=== PATIENT | male | born 1950 | race African-American/Black ===

== ENCOUNTER 2016-12-04 18:20 | Inpatient (IN) | payer OTHER, MEDICARE ==
[~2016-12-04] VITALS: Ht 170.2 cm; Wt 85.2 kg
[2016-12-04 18:22] VITALS: BP 153/97; PULSE 87; RESP 12; TEMP 97.4; O2SAT 94
[2016-12-04 22:43] VITALS: BP 156/96; PULSE 87; RESP 16; O2SAT 95
--- NOTE | 2016-12-04 23:39 | PD ---
HPI Chief Complaint: Pain: Acute or Chronic Time Seen by Provider: 23:31 Travel History International Travel<30 days: No Contact w/Intl Traveler<30days: No Traveled to known affect area: No History of Present Illness HPI 66-year-old male with history of hypertension, here for evaluation of left lower extremity pain. The patient reports having pain behind his left knee is posterior/lateral left thigh, and in his groin on the left side. Pain is been going on for last 2 days, worse with movement and palpation, constant, moderate. No fevers. No trauma. No history of DVT or PE. No recent travel or immobilization. [facility] Social History Alcohol Use: No Tobacco Use: No (Former smoker) Allergies-Medications (Allergen,Severity, Reaction): Coded Allergies: No Known Allergies (Unverified , 12/04/16) Reported Meds & Prescriptions Reported Meds & Active Scripts Active Reported Atorvastatin (Atorvastatin Calcium) 10 Mg Tab 10 Mg PO DAILY Amlodipine (Amlodipine Besylate) 10 Mg Tab 10 Mg PO DAILY Metoprolol Tartrate 50 Mg Tab 75 Mg PO BID Aspirin EC (Aspirin) 81 Mg Tabdr 81 Mg PO DAILY Review of Systems Except as stated in HPI: all other systems reviewed are Neg Physical Exam Narrative GENERAL: Well-developed, well-nourished, comfortable, no acute distress. SKIN: Warm and dry. On right mid/anterior thigh there is a horizontal wavy line of erythema, no warmth, no red streaks, no induration. Over the posterior/ medial left knee there is an area of ecchymosis with a palpable cord. CARDIOVASCULAR: Regular rate and rhythm. Bilateral dorsalis pedis pulses are brisk and equal. RESPIRATORY: No accessory muscle use. Clear to auscultation. Breath sounds equal bilaterally. MUSCULOSKELETAL: There is moderate tenderness to the posterior/medial left knee , medial left thigh, and left groin. No induration. All compartments are supple. Normal range of motion in left knee and hip. The rest of his joints and extremities are without deformity, without tenderness, with normal range of motion. No obvious deformities. No clubbing. No cyanosis. No edema. NEUROLOGICAL: Awake and alert. No obvious cranial nerve deficits. Motor grossly within normal limits. Normal speech. PSYCHIATRIC: Appropriate mood and affect; insight and judgment normal. Data Data Last Documented VS Vital Signs Date Time Temp Pulse Resp B/P Pulse Ox O2 Delivery O2 Flow Rate FiO2 12/04/16 22:43 87 16 156/96 95 Room Air 12/04/16 18:22 97.4 Orders Basic Metabolic Panel (Bmp) (12/04/16 23:34) Complete Blood Count With Diff (12/04/16 23:34) Iv Access Insert/Monitor (12/04/16 23:34) Ecg Monitoring (12/04/16 23:34) Oximetry (12/04/16 23:34) Tramadol (Ultram) (12/04/16 23:45) Us Leg Venous Doppler (12/05/16 ) Heparin Infusion MARCE.Q1H (12/05/16 01:18) Heparin Inj (Heparin Inj) (12/05/16 01:30) Heparin Inj (Heparin Inj) (12/05/16 07:30) Heparin Inj (Heparin Inj) (12/05/16 07:30) Heparin-D5w Inj (Heparin-D5w Inj) (12/05/16 01:30) Act Partial Throm Time (Ptt) (12/05/16 01:18) Prothrombin Time / Inr (Pt) (12/05/16 01:18) Cbc No Diff, Includes Plts (12/08/16 06:00) Act Partial Throm Time (Ptt) (12/05/16 08:18) Occult Blood (Hemoccult) Stool (12/05/16 01:18) Invasive Rad Dept Consult (12/05/16 ) Admit Order (Ed Use Only) (12/05/16 03:12) Labs Laboratory Tests Test 12/05/16 12/05/16 00:50 01:30 Sodium Level 139 MEQ/L Potassium Level 4.7 MEQ/L Chloride Level 108 MEQ/L Carbon Dioxide Level 24.6 MEQ/L Anion Gap 6 MEQ/L Blood Urea Nitrogen 29 MG/DL Creatinine 2.40 MG/DL Estimat Glomerular Filtration 27 ML/MIN Rate Random Glucose 105 MG/DL Calcium Level 9.3 MG/DL White Blood Count 8.2 TH/MM3 Red Blood Count 5.20 MIL/MM3 Hemoglobin 15.6 GM/DL Hematocrit 45.9 % Mean Corpuscular Volume 88.2 FL Mean Corpuscular Hemoglobin 30.1 PG Mean Corpuscular Hemoglobin 34.1 % Concent Red Cell Distribution Width 13.3 % Platelet Count 116 TH/MM3 Mean Platelet Volume 8.4 FL Neutrophils (%) (Auto) 62.0 % Lymphocytes (%) (Auto) 24.9 % Monocytes (%) (Auto) 10.3 % Eosinophils (%) (Auto) 2.2 % Basophils (%) (Auto) 0.6 % Neutrophils # (Auto) 5.1 TH/MM3 Lymphocytes # (Auto) 2.0 TH/MM3 Monocytes # (Auto) 0.8 TH/MM3 Eosinophils # (Auto) 0.2 TH/MM3 Basophils # (Auto) 0.0 TH/MM3 CBC Comment DIFF FINAL Differential Comment Prothrombin Time 11.7 SEC Prothromb Time International 1.1 RATIO Ratio Activated Partial 21.8 SEC Thromboplast Time MDM Medical Decision Making Medical Screen Exam Complete: Yes Emergency Medical Condition: Yes Differential Diagnosis DVT, Gutierrez cyst, musculoskeletal strain, cellulitis/infectious process not likely Narrative Course Vital signs reviewed. Wet read from quality assurance technician shows in occlusive thrombus in the left lower extremity. There are no signs of phlegmasia cerulea dolens and supervisor sewer maintenance phlegmasia alba. He has brisk dorsalis pedis pulses bilaterally. There is an erythematous line across his mid anterior thigh that is squiggly and horizontal, no warmth. It does not appear to be an infection. Seems more like a contact dermatitis. Pt denies chest pain or dyspnea. Left lower extremity duplex: CONCLUSION: 1. Extensive deep venous thrombosis left lower extremity. 2. Thrombolysis could be considered if clinically indicated Case discussed with reading radiologist Dr. Springer. I believe the patient is a good candidate for thrombolysis given that signs and symptoms started 2 days ago and there seems to be a significant clot burden. Patient be admitted to the medical service with consult placed in interventional radiology. The patient was made aware of all findings and plan for admission. He will be started on heparin. At approximately 1:00 AM at the end of my shift the patient was signed out to my nurse practitioner who follow-up with lab results and will admit the patient out of service. Diagnosis Primary Impression: Deep vein thrombosis (DVT) of left lower extremity Qualified Code: I82.492 - Acute deep vein thrombosis (DVT) of other specified vein of left lower extremity Admitting Information Admitting Physician Requests: Observation Avtar Lopez MD Dec 04, 2016 23:39
[2016-12-04] MEDS ORDERED: traMADol HCL 50 MG TAB PO ONE (23:45)
[2016-12-05] MEDS ORDERED: PERC5TAB12 PO (00:54)
--- NOTE | 2016-12-05 01:02 | RADRPT ---
EXAM DATE/TIME: 12/05/2016 00:15 This report includes an Addendum and supersedes previous reports for this exam. [place] COMPARISON: No previous studies available for comparison. INDICATIONS : Left leg pain. MEDICAL HISTORY : Hypertension. Left leg pain. SURGICAL HISTORY : None. ENCOUNTER: Initial ACUITY: 3 days PAIN SCORE: 9/10 LOCATION: Left leg. TECHNIQUE: Venous ultrasound of the leg was performed from the inguinal ligament to the proximal calf. Real-mod[place] e, color Doppler and spectral tracing, compression and augmentation techniques were used. FINDINGS: There is extensive deep venous thrombosis of the entire left leg from the iliac vein through the popl iteal vein and into the calf veins. CONCLUSION: 1. Extensive deep venous thrombosis left lower extremity. 2. Thrombolysis could be considered if clinically indicated Abdirizak Springer MD on December 05, 2016 at 0:59 Board Certified Radiologist. This report was verified electronically. ADDENDUM: The findings section of the report has been corrected. Felipe Hardy MD on December 05, 2016 at 8:04 Board Certified Radiologist. This report was verified electronically.
[2016-12-05 01:24] LABS: BICARBONATE 24.6 MEQ/L (21.0-32.0); POTASSIUM 4.7 MEQ/L (3.5-5.1)
[2016-12-05] MEDS ORDERED: HEPARIN SODIUM - IV 10,000 UNITS/10 ML VIAL IV ONE (01:30)
[2016-12-05] MEDS: HEPARIN-D5W INJ 250 ML IV SCH ×2 (02:13→20:55)
[2016-12-05 02:18] LABS: AUTOMATED NEUTROPHIL # 5.1 TH/MM3 (1.8-7.7); BASOPHIL % 0.6 % (0.0-2.0); EOSINOPHIL # 0.2 TH/MM3 (0-0.4); EOSINOPHIL % 2.2 % (0.0-4.0); HEMATOCRIT 45.9 % (39.0-51.0); HEMO FLAGS DIFF FINAL; LYMPH % 24.9 % (9.0-44.0); MEAN CELL VOLUME 88.2 FL (80.0-100.0); MEAN CORPUSCULAR HEMOGLOBIN 30.1 PG (27.0-34.0); MEAN CORPUSCULAR HGB CONC 34.1 % (32.0-36.0); MONO % 10.3 % (0.0-8.0); PLATELET COUNT 116 TH/MM3 (150-450); RED CELL DISTRIBUTION WIDTH 13.3 % (11.6-17.2); WHITE BLOOD COUNT 8.2 TH/MM3 (4.0-11.0)
[2016-12-05 02:31] LABS: APTT (PATIENT) 21.8 SEC (24.3-30.1); INTERNATIONAL NORMALIZED RATIO 1.1 RATIO; PROTHROMBIN TIME - PATIENT 11.7 SEC (9.8-11.6)
[2016-12-05] MEDS ORDERED: MORPHINE SULFATE 4 MG/ML INJ IV PRN (03:45)
[2016-12-05] MEDS ORDERED: ACETAMINOPHEN 325 MG TAB PO PRN (03:45)
[2016-12-05] MEDS ORDERED: ONDANSETRON HCL 4 MG/2 ML VIAL IVP PRN (03:45)
[2016-12-05] MEDS ORDERED: BISACODYL 10 MG SUPP PR PRN (03:45)
[2016-12-05] MEDS ORDERED: SODIUM CHLORIDE 0.9% FLUSH 5 ML FLUSH FLUSH PRN (03:45)
[2016-12-05 04:00] VITALS: BP 135/98; RESP 16; TEMP 98.1; O2SAT 94
[2016-12-05] MEDS: SODIUM CHLOR 0.9% 1000 ML INJ 1,000 ML IV SCH ×3 (04:19→20:54)
--- NOTE | 2016-12-05 04:45 | PD ---
Physical Exam Time Seen by Provider: 01:00 Narrative Please refer to previous providers documentation for details running patient's current visit. Data Data Last Documented VS Vital Signs Date Time Temp Pulse Resp B/P Pulse Ox O2 Delivery O2 Flow Rate FiO2 12/04/16 22:43 87 16 156/96 95 Room Air 12/04/16 18:22 97.4 Orders Basic Metabolic Panel (Bmp) (12/04/16 23:34) Complete Blood Count With Diff (12/04/16 23:34) Iv Access Insert/Monitor (12/04/16 23:34) Ecg Monitoring (12/04/16 23:34) Oximetry (12/04/16 23:34) Tramadol (Ultram) (12/04/16 23:45) Us Leg Venous Doppler (12/05/16 ) Heparin Infusion MARCE.Q1H (12/05/16 01:18) Heparin Inj (Heparin Inj) (12/05/16 01:30) Heparin Inj (Heparin Inj) (12/05/16 07:30) Heparin Inj (Heparin Inj) (12/05/16 07:30) Heparin-D5w Inj (Heparin-D5w Inj) (12/05/16 01:30) Act Partial Throm Time (Ptt) (12/05/16 01:18) Prothrombin Time / Inr (Pt) (12/05/16 01:18) Cbc No Diff, Includes Plts (12/08/16 06:00) Act Partial Throm Time (Ptt) (12/05/16 08:18) Occult Blood (Hemoccult) Stool (12/05/16 01:18) Invasive Rad Dept Consult (12/05/16 ) Admit Order (Ed Use Only) (12/05/16 03:12) Labs Laboratory Tests Test 12/05/16 12/05/16 00:50 01:30 Sodium Level 139 MEQ/L Potassium Level 4.7 MEQ/L Chloride Level 108 MEQ/L Carbon Dioxide Level 24.6 MEQ/L Anion Gap 6 MEQ/L Blood Urea Nitrogen 29 MG/DL Creatinine 2.40 MG/DL Estimat Glomerular Filtration 27 ML/MIN Rate Random Glucose 105 MG/DL Calcium Level 9.3 MG/DL White Blood Count 8.2 TH/MM3 Red Blood Count 5.20 MIL/MM3 Hemoglobin 15.6 GM/DL Hematocrit 45.9 % Mean Corpuscular Volume 88.2 FL Mean Corpuscular Hemoglobin 30.1 PG Mean Corpuscular Hemoglobin 34.1 % Concent Red Cell Distribution Width 13.3 % Platelet Count 116 TH/MM3 Mean Platelet Volume 8.4 FL Neutrophils (%) (Auto) 62.0 % Lymphocytes (%) (Auto) 24.9 % Monocytes (%) (Auto) 10.3 % Eosinophils (%) (Auto) 2.2 % Basophils (%) (Auto) 0.6 % Neutrophils # (Auto) 5.1 TH/MM3 Lymphocytes # (Auto) 2.0 TH/MM3 Monocytes # (Auto) 0.8 TH/MM3 Eosinophils # (Auto) 0.2 TH/MM3 Basophils # (Auto) 0.0 TH/MM3 CBC Comment DIFF FINAL Differential Comment Prothrombin Time 11.7 SEC Prothromb Time International 1.1 RATIO Ratio Activated Partial 21.8 SEC Thromboplast Time MDM Medical Record Reviewed: Yes Supervised Visit with OLGA LIDIA: No Narrative Course Patient was seen and evaluated by Dr. Lopez, signed out to me with lab work pending. Laboratory Tests Test 12/05/16 12/05/16 00:50 01:30 Sodium Level 139 MEQ/L Potassium Level 4.7 MEQ/L Chloride Level 108 MEQ/L Carbon Dioxide Level 24.6 MEQ/L Anion Gap 6 MEQ/L Blood Urea Nitrogen 29 MG/DL Creatinine 2.40 MG/DL Estimat Glomerular Filtration 27 ML/MIN Rate Random Glucose 105 MG/DL Calcium Level 9.3 MG/DL White Blood Count 8.2 TH/MM3 Red Blood Count 5.20 MIL/MM3 Hemoglobin 15.6 GM/DL Hematocrit 45.9 % Mean Corpuscular Volume 88.2 FL Mean Corpuscular Hemoglobin 30.1 PG Mean Corpuscular Hemoglobin 34.1 % Concent Red Cell Distribution Width 13.3 % Platelet Count 116 TH/MM3 Mean Platelet Volume 8.4 FL Neutrophils (%) (Auto) 62.0 % Lymphocytes (%) (Auto) 24.9 % Monocytes (%) (Auto) 10.3 % Eosinophils (%) (Auto) 2.2 % Basophils (%) (Auto) 0.6 % Neutrophils # (Auto) 5.1 TH/MM3 Lymphocytes # (Auto) 2.0 TH/MM3 Monocytes # (Auto) 0.8 TH/MM3 Eosinophils # (Auto) 0.2 TH/MM3 Basophils # (Auto) 0.0 TH/MM3 CBC Comment DIFF FINAL Differential Comment Prothrombin Time 11.7 SEC Prothromb Time International 1.1 RATIO Ratio Activated Partial 21.8 SEC Thromboplast Time I discussed the patient with Dr. Randolph. Patient will be admitted to the [facility] service. Diagnosis Primary Impression: Deep vein thrombosis (DVT) of left lower extremity Qualified Code: I82.492 - Acute deep vein thrombosis (DVT) of other specified vein of left lower extremity Scripts Oxycodone-Acetaminophen (Percocet)5-325 mg Tab1 Tab PO Q6H PRN (PAIN) #15 TAB Ref 0 Prov:Avatr Lopez MD 12/05/16 Ellie Trevino Dec 05, 2016 04:45
--- NOTE | 2016-12-05 05:20 | HHI.HP ---
[facility]Staff Admission Diagnosis LLE DVT Diagnoses: (1) Deep vein thrombosis (DVT) of left lower extremity Diagnosis: Principal (2) Renal insufficiency Diagnosis: Principal (3) Thrombocytopenia Diagnosis: Principal (4) HTN (hypertension) Diagnosis: Principal Travel History International Travel<30 Days: No Contact w/Intl Traveler <30 Da: No Traveled to Known Affected Are: No History of Present Illness This is a 66-year-old male with a PMH of HTN who presented to the ER with complaints of left leg since Friday. States he had sudden onset of left leg cramping which he attributed to muscle pain from walking. States pain has progressed from calf up to left groin at which point he decided to come in. Denies SOB, chest pain or cough. On arrival, BP 153/97, HR 87, O2 sat 94% on RA , Afebrile. WBC normal. Hgb 15.6. Platelets 116, no previous labs for comparison. Creatinine 2.40, no previous labs for comparison. LLE Doppler with extensive DVT. ER physician spoke with Radiologist who recommends thrombolysis. Started on Heparin gtt in ER. Pt denies previous h/o DVT/PE, no travel, no recent surgical intervention, no tobacco abuse. Review of Systems Except as stated in HPI: all other systems reviewed are Neg ROS: 14 point review of systems otherwise negative. Past Family Social History Past Medical History PMH: HTN Past Surgical History PAST SURGICAL HISTORY: None Allergies: Coded Allergies: No Known Allergies (Unverified , 12/04/16) Family History PAST FAMILY HISTORY: Reviewed. No h/o DM or CAD Social History PAST SOCIAL HISTORY: Negative for alcohol, tobacco or drugs. Physical Exam Vital Signs Vital Signs Date Time Temp Pulse Resp B/P Pulse Ox O2 Delivery O2 Flow Rate FiO2 12/04/16 22:43 87 16 156/96 95 Room Air 12/04/16 18:22 97.4 87 12 153/97 94 Room Air Physical Exam PE: GENERAL: Pleasant middle-aged black male in no acute distress. HEENT: PERRLA, EOMI. No scleral icterus or conjunctival pallor. No lid lag or facial droop. CARDIOVASCULAR: Regular rate and rhythm. No obvious murmurs to auscultation. No chest tenderness to palpation. RESPIRATORY: No obvious rhonchi or wheezing. Clear to auscultation. Breath sounds equal bilaterally. GASTROINTESTINAL: Abdomen soft, non-tender, nondistended. BS normal. MUSCULOSKELETAL: Extremities without clubbing, cyanosis, or edema. No obvious deformities. Left leg/thigh tenderness to palpation. Pulses intact. NEUROLOGICAL: Awake, alert and oriented x4. No focal neurologic deficits. Moving both upper and lower extremities spontaneously. Laboratory Laboratory Tests Test 12/05/16 12/05/16 00:50 01:30 Sodium Level 139 Potassium Level 4.7 Chloride Level 108 Carbon Dioxide Level 24.6 Anion Gap 6 Blood Urea Nitrogen 29 Creatinine 2.40 Estimat Glomerular Filtration 27 Rate Random Glucose 105 Calcium Level 9.3 White Blood Count 8.2 Red Blood Count 5.20 Hemoglobin 15.6 Hematocrit 45.9 Mean Corpuscular Volume 88.2 Mean Corpuscular Hemoglobin 30.1 Mean Corpuscular Hemoglobin 34.1 Concent Red Cell Distribution Width 13.3 Platelet Count 116 Mean Platelet Volume 8.4 Neutrophils (%) (Auto) 62.0 Lymphocytes (%) (Auto) 24.9 Monocytes (%) (Auto) 10.3 Eosinophils (%) (Auto) 2.2 Basophils (%) (Auto) 0.6 Neutrophils # (Auto) 5.1 Lymphocytes # (Auto) 2.0 Monocytes # (Auto) 0.8 Eosinophils # (Auto) 0.2 Basophils # (Auto) 0.0 CBC Comment DIFF FINAL Differential Comment Prothrombin Time 11.7 Prothromb Time International 1.1 Ratio Activated Partial 21.8 Thromboplast Time Result Diagram: 12/05/16 0130 12/05/16 0050 Assessment and Plan Problem List: (1) Deep vein thrombosis (DVT) of left lower extremity ICD Code: I82.402 Status: Acute (2) Renal insufficiency ICD Code: N28.9 Status: Acute (3) Thrombocytopenia ICD Code: D69.6 Status: Acute (4) HTN (hypertension) ICD Code: I10 Status: Acute Assessment and Plan A/P: 1. LLE DVT: Acute. c/o cramping left leg pain since Friday. Doppler LLE w/ extensive DVT of LLE, amenable to thrombolysis. ER physician spoke w/ Radiologist to coordinate thrombolysis, scheduled for this am. Started on Heparin gtt in ER. No h/o DVT/PE, no risk factors, no tobacco abuse, no surgery , no prolonged immobilization. Work-up for age-appropriate malignancy. 2. Renal Insufficiency: Creatinine 2.40, reports h/o "kidney problems" however pt unable to specify further, no previous labs for comparison. Check U/ a, IVF, repeat labs in am. 3. Thrombocytopenia: Platelets 116, no previous labs for comparison. Caution w/ anticoagulation. Repeat labs in am. 4. HTN: BP 150's systolic. Start on Metoprolol 25mg bid. 5. DVT Prophylaxis: on Heparin gtt for acute DVT. 6. Social work for d/c planning as needed. 7. Case discussed w/ ER physician at length. Physician Certification 2 Midnight Certification Type: Admission for Inpatient Services Order for Inpatient Services The services are ordered in accordance with Medicare regulations or non- Medicare payer requirements, as applicable. In the case of services not specified as inpatient-only, they are appropriately provided as inpatient services in accordance with the 2-midnight benchmark. Estimated LOS (days): 2 days is the estimated time the patient will need to remain in the hospital, assuming treatment plan goals are met and no additional complications. Post-Hospital Plan: Not yet determined Problem Qualifiers (1) Deep vein thrombosis (DVT) of left lower extremity: Qualified Code: I82.492 - Acute deep vein thrombosis (DVT) of other specified vein of left lower extremity Anupama Randolph MD Dec 05, 2016 05:19
[2016-12-05] MEDS ORDERED: HEPARIN SODIUM - IV 10,000 UNITS/10 ML VIAL IV PRN ×2 (07:30)
[2016-12-05 08:06] LABS: BACTERIA, URINE OCC /hpf; BLOOD, URINE NEG (NEG); COMMENT (UR) CULTURE INDICATED; CULTURE IF INDICATED CULTURE INDICATED; GLUCOSE,URINE NEG (NEG); KETONE, URINE NEG (NEG); MUCUS URINE FEW /lpf (OCC); NITRITE,URINE NEG (NEG); PH, URINE 5.5 (5.0-8.5); URINE COLOR YELLOW (YELLW/STRAW)
--- NOTE | 2016-12-05 08:46 | PD.RAD ---
Radiology Note 66 Y/O with acute DVT left lower extremity and H/O chronic renal insufficiency with creatine of 2.4 Pt examined in the ED Left leg is moderately swollen but no threatened. The risk , benefits and complications of DVT thrombolysis were discussed. A/P: PT has chronic renal insufficiency. Leg is swollen but non threatened. Due to the risk of contrast induced nephropathy / worsened nephropathy from my myoglobinuria if mechanical thrombectomy is preformed, Conventional anticoagulation for treatment would be recommended at this time. If swelling worsens please reconsult IR dept. Felipe Hardy MD Dec 05, 2016 08:45
[2016-12-05] MEDS ORDERED: METOPROLOL TARTRATE 25 MG TAB PO SCH (09:00)
[2016-12-05 09:50] VITALS: BP 130/84; PULSE 93; RESP 18; O2SAT 91
[2016-12-05] MEDS: ACETAMINOPHEN/HYDROcodone 325 MG/5 MG TAB PO PRN ×3 (09:50→18:49)
[2016-12-05] MEDS: SODIUM CHLORIDE 0.9% FLUSH 5 ML FLUSH FLUSH SCH ×2 (09:56→20:55)
[2016-12-05 10:28] LABS: APTT (PATIENT) 80.2 SEC (24.3-30.1)
[2016-12-05] MEDS ORDERED: ASPI81TA11 PO (10:46)
[2016-12-05] MEDS ORDERED: ATOR10TA15 PO (10:54)
[2016-12-05] MEDS ORDERED: METO50TA PO (10:54)
[2016-12-05] MEDS ORDERED: AMLO10TA2 PO (10:54)
--- NOTE | 2016-12-05 13:55 | HHI.PR ---
Subjective Remarks Follow-up left lower extremity DVT 12/05/16-patient seen and examined, secondary to elevated BUN and creatinine for interventional radiology, should continue with medical management at this time. No complaint of chest pain or shortness of breath. Objective Vitals Vital Signs Date Time Temp Pulse Resp B/P Pulse Ox O2 Delivery O2 Flow Rate FiO2 12/05/16 09:50 93 18 130/84 91 Room Air 12/05/16 04:00 98.1 16 135/98 94 Room Air 12/04/16 22:43 87 16 156/96 95 Room Air 12/04/16 18:22 97.4 87 12 153/97 94 Room Air I/O 12/04/16 12/04/16 12/04/16 12/05/16 12/05/16 12/05/16 06:59 14:59 22:59 06:59 14:59 22:59 Intake Total 360 ml Balance 360 ml Intake Oral 360 ml Result Diagram: 12/05/16 0130 12/05/16 0050 Imaging Last Impressions Lower Extremity Ultrasound 12/05/16 0000 Signed Impressions: Service Date/Time: November 00:15 - CONCLUSION: 1. Extensive deep venous thrombosis left lower extremity. 2. Thrombolysis could be considered if clinically indicated Abdirizak Springer MD ADDENDUM: The findings section of the report has been corrected. Felipe Hardy MD Objective Remarks GENERAL: NAD SKIN: Warm and dry. HEAD: Normocephalic. EYES: No scleral icterus. No injection or drainage. NECK: Supple, trachea midline. No JVD or lymphadenopathy. CARDIOVASCULAR: Regular rate and rhythm without murmurs, gallops, or rubs. RESPIRATORY: Breath sounds equal bilaterally. No accessory muscle use. GASTROINTESTINAL: Abdomen soft, non-tender, nondistended. MUSCULOSKELETAL: No cyanosis, or edema. Positive Klein sign left lower extremity BACK: Nontender without obvious deformity. No CVA tenderness. A/P Problem List: (1) Deep vein thrombosis (DVT) of left lower extremity ICD Code: I82.402 Status: Acute (2) Renal insufficiency ICD Code: N28.9 Status: Acute (3) Thrombocytopenia ICD Code: D69.6 Status: Acute (4) HTN (hypertension) ICD Code: I10 Status: Acute Assessment and Plan 66-year-old male with 1. LLE DVT: Acute. Doppler LLE w/ extensive DVT of LLE, amenable to thrombolysis however per interventional radiology "Due to the risk of contrast induced nephropathy / worsened nephropathy from my myoglobinuria if mechanical thrombectomy is preformed, Conventional anticoagulation for treatment would be recommended at this time. If swelling worsens please reconsult IR dept." Continue with heparin drip and switch to by mouth Xarelto in a.m. 12/06/16. No h/o DVT/PE, no risk factors, no tobacco abuse, no surgery, no prolonged immobilization. Hypercoagulable studies outpatient 2. Renal Insufficiency: Avoid all nephrotoxic drugs, continue with IV fluid hydration and monitor BUN and creatinine 3. Thrombocytopenia: Platelets 116, no previous labs for comparison. Caution w/ anticoagulation. Repeat labs in am. 4. HTN: Resume outpatient medications including Lopressor, Norvasc 5. Hyperlipidemia: Resume Lipitor 6. DVT Prophylaxis: on Heparin gtt for acute DVT. Problem Qualifiers (1) Deep vein thrombosis (DVT) of left lower extremity: Qualified Code: I82.492 - Acute deep vein thrombosis (DVT) of other specified vein of left lower extremity Stveen Camp MD Dec 05, 2016 13:55
[2016-12-05 17:56] LABS: APTT (PATIENT) 101.5 SEC (24.3-30.1)
[2016-12-05 20:00] VITALS: BP 117/83; PULSE 69; RESP 18; TEMP 98.5; O2SAT 91
[2016-12-05] MEDS: METOPROLOL TARTRATE 25 MG TAB PO SCH (20:54)
[2016-12-05 21:24] LABS: APTT (PATIENT) 44.9 SEC (24.3-30.1)
[2016-12-06] VITALS: BP 115/79; PULSE 63; RESP 18; TEMP 98.2; O2SAT 92
[2016-12-06 02:36] LABS: AUTOMATED NEUTROPHIL # 3.5 TH/MM3 (1.8-7.7); BASOPHIL # 0.1 TH/MM3 (0-0.2); BASOPHIL % 0.9 % (0.0-2.0); EOSINOPHIL # 0.4 TH/MM3 (0-0.4); EOSINOPHIL % 6.1 % (0.0-4.0); HEMATOCRIT 42.8 % (39.0-51.0); HEMO FLAGS DIFF FINAL; LYMPH % 32.5 % (9.0-44.0); LYMPHOCYTE # 2.4 TH/MM3 (1.0-4.8); MEAN CORPUSCULAR HEMOGLOBIN 29.2 PG (27.0-34.0); MEAN CORPUSCULAR HGB CONC 33.6 % (32.0-36.0); MONO % 11.6 % (0.0-8.0); NEUT % 48.9 % (16.0-70.0); PLATELET COUNT 120 TH/MM3 (150-450); RED BLOOD COUNT 4.91 MIL/MM3 (4.50-5.90); RED CELL DISTRIBUTION WIDTH 12.9 % (11.6-17.2); WHITE BLOOD COUNT 7.3 TH/MM3 (4.0-11.0)
[2016-12-06 02:47] LABS: APTT (PATIENT) 54.4 SEC (24.3-30.1); INTERNATIONAL NORMALIZED RATIO 1.1 RATIO
[2016-12-06 04:00] VITALS: BP 128/79; PULSE 83; RESP 18; TEMP 99; O2SAT 93
[2016-12-06] MEDS: SODIUM CHLOR 0.9% 1000 ML INJ 1,000 ML IV SCH ×2 (04:52→10:39)
[2016-12-06 07:19] LABS: ALKALINE PHOSPHATASE 80 U/L (45-117); ALT (GPT) 29 U/L (12-78); ANION GAP 9 MEQ/L (5-15); AST (GOT) 37 U/L (15-37); BICARBONATE 22.3 MEQ/L (21.0-32.0); CHLORIDE 108 MEQ/L (98-107); GLOMERULAR FILTRATION RATE 40 ML/MIN (>89); POTASSIUM 4.3 MEQ/L (3.5-5.1); SODIUM (NA) 139 MEQ/L (136-145); TOTAL BILIRUBIN ADULT 0.8 MG/DL (0.2-1.0)
[2016-12-06 07:40] LABS: BLOOD UREA NITROGEN 26 MG/DL (7-18)
[2016-12-06 08:48] VITALS: BP 133/87; PULSE 94; RESP 20; TEMP 98.5; O2SAT 93
[2016-12-06] MEDS ORDERED: RIVAROXABAN 15 MG TAB PO SCH (09:00)
[2016-12-06] MEDS ORDERED: ATORVASTATIN 10 MG TAB PO SCH (09:00)
[2016-12-06] MEDS: ACETAMINOPHEN/HYDROcodone 325 MG/5 MG TAB PO PRN (10:10)
[2016-12-06] MEDS: METOPROLOL TARTRATE 25 MG TAB PO SCH (10:11)
[2016-12-06] MEDS: SODIUM CHLORIDE 0.9% FLUSH 5 ML FLUSH FLUSH SCH (10:12)
[2016-12-06] MEDS ORDERED: XARE15TA PO (11:54)
[2016-12-06] MEDS ORDERED: HYDR-3516 PO (11:54)
[2016-12-06] MEDS ORDERED: XARE20TA PO (11:54)
--- NOTE | 2016-12-06 11:58 | HHI.PR ---
Subjective Remarks Follow-up left was community DVT 12/06/16-patient seen and examined, reports some mild left lower extremity pain however stable. Heparin was discontinued this monitoring and patient started on Xarelto Objective Vitals Vital Signs Date Time Temp Pulse Resp B/P Pulse Ox O2 Delivery O2 Flow Rate FiO2 12/06/16 08:48 98.5 94 20 133/87 93 12/06/16 04:00 99.0 83 18 128/79 93 12/06/16 00:00 98.2 63 18 115/79 92 12/05/16 20:00 98.5 69 18 117/83 91 I/O 12/05/16 12/05/16 12/05/16 12/06/16 12/06/16 12/06/16 07:00 15:00 23:00 07:00 15:00 23:00 Intake Total 360 ml 639 ml 994 ml Output Total 475 ml Balance 360 ml 639 ml 994 ml -475 ml Intake Oral 360 ml 360 ml 240 ml IV Total 279 ml 754 ml Output Urine Total 475 ml # Voids 3 4 1 # Bowel Movements 1 Result Diagram: 12/06/16 0205 12/06/16 0538 Imaging Last Impressions Lower Extremity Ultrasound 12/05/16 0000 Signed Impressions: Service Date/Time: November 00:15 - CONCLUSION: 1. Extensive deep venous thrombosis left lower extremity. 2. Thrombolysis could be considered if clinically indicated Abdirizak Springer MD ADDENDUM: The findings section of the report has been corrected. Felipe Hardy MD Objective Remarks GENERAL: NAD SKIN: Warm and dry. HEAD: Normocephalic. EYES: No scleral icterus. No injection or drainage. NECK: Supple, trachea midline. No JVD or lymphadenopathy. CARDIOVASCULAR: Regular rate and rhythm without murmurs, gallops, or rubs. RESPIRATORY: Breath sounds equal bilaterally. No accessory muscle use. GASTROINTESTINAL: Abdomen soft, non-tender, nondistended. MUSCULOSKELETAL: No cyanosis, or edema. Positive Klein sign left lower extremity BACK: Nontender without obvious deformity. No CVA tenderness. Procedures None A/P Problem List: (1) Deep vein thrombosis (DVT) of left lower extremity ICD Code: I82.402 Status: Acute (2) Renal insufficiency ICD Code: N28.9 Status: Acute (3) Thrombocytopenia ICD Code: D69.6 Status: Acute (4) HTN (hypertension) ICD Code: I10 Status: Acute Assessment and Plan 66-year-old male with 1. LLE DVT: Acute. Doppler LLE w/ extensive DVT of LLE, amenable to thrombolysis however per interventional radiology "Due to the risk of contrast induced nephropathy / worsened nephropathy from my myoglobinuria if mechanical thrombectomy is preformed, Conventional anticoagulation for treatment would be recommended at this time. If swelling worsens please reconsult IR dept." s/p heparin drip and now on Xarelto 15mg BID x 21 days 12/06/16 then Xarelto 20mg daily. No h/o DVT/PE, no risk factors, no tobacco abuse, no surgery, no prolonged immobilization. Hypercoagulable studies outpatient 2. Renal Insufficiency: Avoid all nephrotoxic drugs, continue with IV fluid hydration and monitor BUN and creatinine 3. Thrombocytopenia: Platelets 116, no previous labs for comparison. Caution w/ anticoagulation. 4. HTN: continue outpatient medications including Lopressor, Norvasc 5. Hyperlipidemia: continue Lipitor 6. DVT Prophylaxis: on Heparin gtt for acute DVT. Problem Qualifiers (1) Deep vein thrombosis (DVT) of left lower extremity: Qualified Code: I82.492 - Acute deep vein thrombosis (DVT) of other specified vein of left lower extremity Steven Camp MD Dec 06, 2016 11:58
--- NOTE | 2016-12-06 11:59 | HHI.DS ---
Discharge Summary Admission Date Dec 05, 2016 at 03:14 Discharge Date: Dec 06, 2016 Admitting Diagnosis LLE DVT (1) Deep vein thrombosis (DVT) of left lower extremity ICD Code: I82.402 (2) Renal insufficiency ICD Code: N28.9 (3) Thrombocytopenia ICD Code: D69.6 (4) HTN (hypertension) ICD Code: I10 Procedures None Brief History - From Admission This is a 66-year-old male with a PMH of HTN who presented to the ER with complaints of left leg since Friday. States he had sudden onset of left leg cramping which he attributed to muscle pain from walking. States pain has progressed from calf up to left groin at which point he decided to come in. Denies SOB, chest pain or cough. On arrival, BP 153/97, HR 87, O2 sat 94% on RA , Afebrile. WBC normal. Hgb 15.6. Platelets 116, no previous labs for comparison. Creatinine 2.40, no previous labs for comparison. LLE Doppler with extensive DVT. ER physician spoke with Radiologist who recommends thrombolysis. Started on Heparin gtt in ER. Pt denies previous h/o DVT/PE, no travel, no recent surgical intervention, no tobacco abuse. CBC/BMP: 12/06/16 0205 12/06/16 0538 Significant Findings Laboratory Tests Test 12/05/16 12/05/16 12/05/16 12/05/16 00:50 01:30 07:25 09:45 Chloride Level 108 MEQ/L (98-107) Blood Urea Nitrogen 29 MG/DL (7-18) Creatinine 2.40 MG/DL (0.60-1.30) Estimat Glomerular Filtration 27 ML/MIN (>89) Rate Platelet Count 116 TH/MM3 (150-450) Monocytes (%) (Auto) 10.3 % (0.0-8.0) Prothrombin Time 11.7 SEC (9.8-11.6) Activated Partial 21.8 SEC 80.2 SEC Thromboplast Time (24.3-30.1) (24.3-30.1) Urine Protein 30 mg/dL (NEG-TRACE) Urine Leukocyte Esterase MOD (NEG) Urine WBC 10 /hpf (0-5) Urine Bacteria OCC /hpf (NONE) Urine Mucus FEW /lpf (OCC) Test 12/05/16 12/05/16 12/06/16 12/06/16 17:00 20:08 02:05 05:38 Activated Partial 101.5 SEC 44.9 SEC 54.4 SEC 57.0 SEC Thromboplast Time (24.3-30.1) (24.3-30.1) (24.3-30.1) (24.3-30.1) Platelet Count 120 TH/MM3 (150-450) Monocytes (%) (Auto) 11.6 % (0.0-8.0) Eosinophils (%) (Auto) 6.1 % (0.0-4.0) Prothrombin Time 12.0 SEC (9.8-11.6) Chloride Level 108 MEQ/L (98-107) Blood Urea Nitrogen 26 MG/DL (7-18) Creatinine 2.06 MG/DL (0.60-1.30) Estimat Glomerular Filtration 40 ML/MIN (>89) Rate Albumin 3.0 GM/DL (3.4-5.0) Imaging Last Impressions Lower Extremity Ultrasound 12/05/16 0000 Signed Impressions: Service Date/Time: November 00:15 - CONCLUSION: 1. Extensive deep venous thrombosis left lower extremity. 2. Thrombolysis could be considered if clinically indicated Abdirizak Springer MD ADDENDUM: The findings section of the report has been corrected. Felipe Hardy MD PE at Discharge GENERAL: NAD SKIN: Warm and dry. HEAD: Normocephalic. EYES: No scleral icterus. No injection or drainage. NECK: Supple, trachea midline. No JVD or lymphadenopathy. CARDIOVASCULAR: Regular rate and rhythm without murmurs, gallops, or rubs. RESPIRATORY: Breath sounds equal bilaterally. No accessory muscle use. GASTROINTESTINAL: Abdomen soft, non-tender, nondistended. MUSCULOSKELETAL: No cyanosis, or edema. Positive Klein sign left lower extremity BACK: Nontender without obvious deformity. No CVA tenderness. Hospital Course 1. LLE DVT: Acute. Doppler LLE w/ extensive DVT of LLE, amenable to thrombolysis however per interventional radiology "Due to the risk of contrast induced nephropathy / worsened nephropathy from my myoglobinuria if mechanical thrombectomy is preformed, Conventional anticoagulation for treatment would be recommended at this time. If swelling worsens please reconsult IR dept." s/p heparin drip and now on Xarelto 15mg BID x 21 days 12/06/16 then Xarelto 20mg daily. No h/o DVT/PE, no risk factors, no tobacco abuse, no surgery, no prolonged immobilization. Hypercoagulable studies outpatient 2. Renal Insufficiency: Avoid all nephrotoxic drugs, continue with IV fluid hydration and monitor BUN and creatinine 3. Thrombocytopenia: Platelets 116, no previous labs for comparison. Caution w/ anticoagulation. 4. HTN: continue outpatient medications including Lopressor, Norvasc 5. Hyperlipidemia: continue Lipitor 6. DVT Prophylaxis: on Heparin gtt for acute DVT. Pt Condition on Discharge: Stable Discharge Disposition: Discharge Home Discharge Time: <= 30 minutes Discharge Instructions DIET: Follow Instructions for: Heart Healthy Diet Activities you can perform: Regular-No Restrictions Follow up Referrals: PCP Follow-up - 1 Week New Medications: Rivaroxaban (Xarelto) 20 Mg Tab 20 MG PO DAILY Blood Clot Prevention #30 Ref 3 TAB Hydrocodone-Acetaminophen (Hydrocodone-Acetaminophen) 5-325 mg Tab 1 TAB PO Q4H PRN PAIN SCALE 3 TO 5 #10 TAB Rivaroxaban (Xarelto) 15 Mg Tab 15 MG PO BID Prevent Blood Clot #42 TAB Continued Medications: Amlodipine (Amlodipine) 10 Mg Tab 10 MG PO DAILY Blood Pressure Management #30 Ref 0 TAB Atorvastatin (Atorvastatin) 10 Mg Tab 10 MG PO DAILY Cholesterol Management #30 Ref 0 TAB Metoprolol Tartrate (Metoprolol Tartrate) 50 Mg Tab 75 MG PO BID #60 Ref 0 TAB Discontinued Medications: Aspirin DR (Aspirin EC) 81 Mg Tabdr 81 MG PO DAILY Ref 0 TAB Steven Camp MD Dec 06, 2016 11:59
[2016-12-06 12:45] VITALS: BP 119/83; PULSE 83; RESP 20; TEMP 98.3; O2SAT 93
== END 2016-12-06 13:37 | disposition home or self-care (01) | DRG 301 ==
LOC: NEPB 18:20 → NEDA 12-05 03:14 → NEDH 12-05 08:20 → N05B 12-05 18:13
PROVIDERS: ADMIT Hospitalist; ATTEND Hospitalist
DX: I82.402 Acute embolism and thrombosis of unspecified deep veins of left lower extremity (principal); D69.6 Thrombocytopenia, unspecified; N18.9 Chronic kidney disease, unspecified; I12.9 Hypertensive chronic kidney disease with stage 1 through stage 4 chronic kidney disease, or unspecified chronic kidney disease; E78.5 Hyperlipidemia, unspecified; L25.9 Unspecified contact dermatitis, unspecified cause; Z87.891 Personal history of nicotine dependence
CPT/HCPCS: 80048; 80053; 81001; 85025; 85610; 85730; 87086; 93971; 96365; J1644; J7030

== ENCOUNTER 2018-03-18 14:21 | Emergency (ER) | payer OTHER, MEDICAID ==
[~2018-03-18] VITALS: Ht 167.6 cm; Wt 87.0 kg
[~2018-03-18 14:21] MED LIST: AMLO10TA2 PO; ATOR10TA15 PO; HYDR-3516 PO; METO50TA PO; XARE15TA PO; XARE20TA PO
[2018-03-18 14:25] VITALS: BP 139/92; PULSE 102; RESP 18; TEMP 99.1; O2SAT 97
--- NOTE | 2018-03-18 14:58 | PD ---
HPI Chief Complaint: Fever Time Seen by Provider: 14:34 Travel History International Travel<30 days: No Contact w/Intl Traveler<30days: No Traveled to known affect area: No History of Present Illness HPI This patient woke up this morning feeling fine. Around 10 AM he developed some vague malaise and dizziness. However he also developed some abdominal pain duration is 5 hours. Severity is moderate. He felt warm but did not check his temperature. He denies any respiratory symptoms. He has no vomiting or diarrhea. No. No history of abdominal surgeries. No urinary complaints. PFSH Past Medical History Cancer: No Cardiovascular Problems: Yes Cerebrovascular Accident: Yes (2008) Diabetes: Yes (borderline) Endocrine: Yes Genitourinary: Yes Hypertension: Yes Immune Disorder: No Kidney Stones: Yes (not sure if it's a kidney stone) Musculoskeletal: Yes Neurologic: Yes Psychiatric: No Reproductive: No Respiratory: No Renal Failure: Yes Past Surgical History Arteriovenous Shunt: Yes (2011 or 2012) Eye Surgery: Yes (retinal detachment 40 yrs ago) Social History Alcohol Use: No Tobacco Use: No (Former smoker) Substance Use: No Allergies-Medications (Allergen,Severity, Reaction): Coded Allergies: No Known Allergies (Unverified Adverse Reaction, Unknown, 03/18/18) Reported Meds & Prescriptions Reported Meds & Active Scripts Active Hydrocodone-Acetaminophen 5-325 mg Tab 1 Tab PO Q4H PRN Xarelto (Rivaroxaban) 20 Mg Tab 20 Mg PO DAILY Xarelto (Rivaroxaban) 15 Mg Tab 15 Mg PO BID Reported Atorvastatin (Atorvastatin Calcium) 10 Mg Tab 10 Mg PO DAILY Amlodipine (Amlodipine Besylate) 10 Mg Tab 10 Mg PO DAILY Metoprolol Tartrate 50 Mg Tab 75 Mg PO BID Review of Systems General / Constitutional: No: Fever Eyes: No: Visual changes HENT: Positive: Lightheadedness, No: Headaches Cardiovascular: No: Chest Pain or Discomfort Respiratory: No: Shortness of Breath Gastrointestinal: Positive: Abdominal Pain Genitourinary: No: Dysuria Musculoskeletal: No: Pain Skin: No Rash Neurologic: Positive: Dizziness, No: Weakness Psychiatric: No: Depression Endocrine: No: Polydipsia Hematologic/Lymphatic: No: Easy Bruising Physical Exam Narrative GENERAL: Well-nourished, well-developed patient in no apparent distress. SKIN: Focused skin assessment reveals no rash and nodules. Skin is Warm and dry. HEAD: Atraumatic. Normocephalic. EYES: Pupils equal and round. No scleral icterus. No injection or drainage. ENT: No nasal bleeding or discharge. Mucous membranes pink and moist. NECK: Trachea midline. No JVD. No meningeal signs CARDIOVASCULAR: Regular rate and rhythm. No murmur appreciated. RESPIRATORY: No accessory muscle use. Clear to auscultation. Breath sounds equal bilaterally. GASTROINTESTINAL: Abdomen soft, some right lower quadrant tenderness without rebound or guarding , nondistended. Hepatic and splenic margins not palpable. MUSCULOSKELETAL: No obvious deformities. No clubbing. No cyanosis. No edema. NEUROLOGICAL: Awake and alert. No obvious cranial nerve deficits. Motor grossly within normal limits. Normal speech. PSYCHIATRIC: Appropriate mood and affect; insight and judgment normal. Data Data Last Documented VS Vital Signs Date Time Temp Pulse Resp B/P (MAP) Pulse Ox O2 Delivery O2 Flow Rate FiO2 03/18/18 14:25 99.1 102 18 139/92 (108) 97 Orders Orders Complete Blood Count With Diff (03/18/18 14:51) Comprehensive Metabolic Panel (03/18/18 14:51) Lipase (03/18/18 14:51) Urinalysis - C+S If Indicated (03/18/18 14:51) Iv Access Insert/Monitor (03/18/18 14:51) NPO (03/18/18 14:51) Sodium Chloride 0.9% Flush (Ns Flush) (03/18/18 15:00) Urine Culture (03/18/18 15:15) Ct Abd/Pel W/O Iv Contrast (03/18/18 14:51) Labs Laboratory Tests Test 03/18/18 15:10 03/18/18 15:15 White Blood Count 7.6 TH/MM3 Red Blood Count 5.58 MIL/MM3 Hemoglobin 16.6 GM/DL Hematocrit 50.2 % Mean Corpuscular Volume 89.9 FL Mean Corpuscular Hemoglobin 29.8 PG Mean Corpuscular Hemoglobin Concent 33.2 % Red Cell Distribution Width 14.0 % Platelet Count 123 TH/MM3 Mean Platelet Volume 8.6 FL Neutrophils (%) (Auto) 86.7 % Lymphocytes (%) (Auto) 5.7 % Monocytes (%) (Auto) 5.4 % Eosinophils (%) (Auto) 2.0 % Basophils (%) (Auto) 0.2 % Neutrophils # (Auto) 6.6 TH/MM3 Lymphocytes # (Auto) 0.4 TH/MM3 Monocytes # (Auto) 0.4 TH/MM3 Eosinophils # (Auto) 0.2 TH/MM3 Basophils # (Auto) 0.0 TH/MM3 CBC Comment DIFF FINAL Differential Comment Blood Urea Nitrogen 33 MG/DL Creatinine 3.11 MG/DL Random Glucose 106 MG/DL Total Protein 8.0 GM/DL Albumin 3.8 GM/DL Calcium Level 9.1 MG/DL Alkaline Phosphatase 88 U/L Aspartate Amino Transf (AST/SGOT) 45 U/L Alanine Aminotransferase (ALT/SGPT) 24 U/L Total Bilirubin 0.5 MG/DL Sodium Level 140 MEQ/L Potassium Level 4.4 MEQ/L Chloride Level 109 MEQ/L Carbon Dioxide Level 19.4 MEQ/L Anion Gap 12 MEQ/L Estimat Glomerular Filtration Rate 25 ML/MIN Lipase 200 U/L Urine Color YELLOW Urine Turbidity CLEAR Urine pH 5.5 Urine Specific [place] 1.017 Urine Protein 100 mg/dL Urine Glucose (UA) NEG mg/dL Urine Ketones NEG mg/dL Urine Occult Blood SMALL Urine Nitrite NEG Urine Bilirubin NEG Urine Urobilinogen 2.0 MG/DL Urine Leukocyte Esterase MOD Urine RBC 1 /hpf Urine WBC 14 /hpf Urine Squamous Epithelial Cells 1 /hpf Urine Mucus FEW /lpf Microscopic Urinalysis Comment CULTURE INDICATED MDM Medical Decision Making Medical Screen Exam Complete: Yes Emergency Medical Condition: Yes Medical Record Reviewed: Yes Differential Diagnosis Appendicitis, colitis, ileus Narrative Course I have reviewed the patient's electronic medical record. I think the most important thing to rule out here is appendicitis. He is right lower quadrant pain for 5 hours and some tenderness. Labs and CT and urinalysis ordered Lab studies reveal chronic renal failure . I doubt his few white cells represent some significant infection causing him symptoms. He has no urinary complaints. It will be cultured. I would treat based on the culture and not his urinalysis CT is pending. Case checked out to the evening physician Diagnosis Primary Impression: Abdominal pain Qualified Codes: R10.31 - Right lower quadrant pain Jonatan Umaña MD March 18, 2018 14:58
[2018-03-18] MEDS ORDERED: SODIUM CHLORIDE 0.9% FLUSH 10 ML FLUSH IV FLUSH PRN (15:00)
[2018-03-18 15:29] LABS: AUTOMATED NEUTROPHIL # 6.6 TH/MM3 (1.8-7.7); BASOPHIL % 0.2 % (0.0-2.0); EOSINOPHIL # 0.2 TH/MM3 (0-0.4); HEMATOCRIT 50.2 % (39.0-51.0); HEMOGLOBIN 16.6 GM/DL (13.0-17.0); LYMPH % 5.7 % (9.0-44.0); LYMPHOCYTE # 0.4 TH/MM3 (1.0-4.8); MEAN CELL VOLUME 89.9 FL (80.0-100.0); MEAN CORPUSCULAR HEMOGLOBIN 29.8 PG (27.0-34.0); MEAN CORPUSCULAR HGB CONC 33.2 % (32.0-36.0); MEAN PLATELET VOLUME 8.6 FL (7.0-11.0); MONO % 5.4 % (0.0-8.0); MONOCYTE # 0.4 TH/MM3 (0-0.9); NEUT % 86.7 % (16.0-70.0); PLATELET COUNT 123 TH/MM3 (150-450); RED BLOOD COUNT 5.58 MIL/MM3 (4.50-5.90); WHITE BLOOD COUNT 7.6 TH/MM3 (4.0-11.0)
[2018-03-18 15:29] LABS: BILIRUBIN, URINE NEG (NEG); BLOOD, URINE SMALL (NEG); GLUCOSE,URINE NEG (NEG); KETONE, URINE NEG (NEG); MUCUS URINE FEW /lpf (OCC); NITRITE,URINE NEG (NEG); PH, URINE 5.5 (5.0-8.5); SQUAMOUS EPITHELIAL CELL URINE 1 /hpf (0-5); URINE COLOR YELLOW (YELLW/STRAW); URINE LEUKOCYTE ESTERASE MOD (NEG)
[2018-03-18 15:50] LABS: ALKALINE PHOSPHATASE 88 U/L (45-117); ALT (GPT) 24 U/L (12-78); TOTAL BILIRUBIN ADULT 0.5 MG/DL (0.2-1.0)
[2018-03-18 15:56] LABS: ALBUMIN 3.8 GM/DL (3.4-5.0); AST (GOT) 45 U/L (15-37); BICARBONATE 19.4 MEQ/L (21.0-32.0); BLOOD UREA NITROGEN 33 MG/DL (7-18); CALCIUM 9.1 MG/DL (8.5-10.1); CHLORIDE 109 MEQ/L (98-107); CREATININE 3.11 MG/DL (0.60-1.30); GLOMERULAR FILTRATION RATE 25 ML/MIN (>89); GLUCOSE,RANDOM 106 MG/DL (74-106); SODIUM (NA) 140 MEQ/L (136-145)
--- NOTE | 2018-03-18 17:03 | RADRPT ---
EXAM DATE: 03/18/2018 4:54 PM EDT AGE/SEX: 67 years / Male INDICATIONS: Abdomen pain. CLINICAL DATA: This is the patient's initial encounter. Patient reports that signs and symptoms have been present for 1 day and indicates a pain score of 5/10. MEDICAL/SURGICAL HISTORY: Stroke. Cardiovascular disease. Renal failure, chronic. None. RADIATION DOSE: 9.08 CTDI (mGy) COMPARISON: No prior [place] exams available for comparison. TECHNIQUE: Multiple contiguous axial images were obtained through the abdomen. Images were obtained using multiple row detector helical technique. Using dose reduction techniques, radiation dose was ke pt as low as reasonably achievable to obtain optimal diagnostic quality images. FINDINGS: Lower Lungs: The visualized lower lungs are clear except for scarring and/or atelectasis in the depen dent portions of the lung bases right greater than left. Liver: The liver has a homogeneous density without space-occupying lesion. There is no dilation of th e biliary tree. Unremarkable gallbladder. Spleen: Homogeneous density without enlargement. Pancreas: Unremarkable without mass or calcification. Kidneys: Normal in size and shape. No evidence of mass or hydronephrosis. Adrenal Glands: Unremarkable. Aorta: The aorta and proximal iliac vessels are grossly unremarkable without aneurysmal dilation. Bowel/Mesentery: No oral contrast was given sensitivity of the exam. The bowel loops are grossly unre markable. The cecum and sigmoid colon have a normal configuration. Abdominal Wall: Intact. Retroperitoneum: No evidence of adenopathy in the retrocrural, para-aortic, or deep pelvic regions. Bladder: Contours are smooth. Reproductive Organs: No abnormal masses or calcifications seen. Inguinal: The inguinal region is unremarkable without evidence of adenopathy. Bony Structures: Unremarkable. CONCLUSION: 1. Unremarkable bowel gas pattern. 2. Gallbladder is within normal limits. 3. No visualized etiology to explain the patient's pain. Electronically signed by: Marcelo Boggs MD 03/18/2018 5:01 PM EDT
--- NOTE | 2018-03-18 17:18 | PD ---
Physical Exam Narrative Received sign out from previous provider to follow up on CT a/p. 67yo M with CKD here with lower abdominal pain for 5 hours. Labs reviewed, no leukocytosis. H/H normal. Mild thrombocytopenia which is at baseline. BUN/ creatinine elevated but only midly increased from baseline. As per previous provider's note, pt will not be treated for UTI since he has no urinary symptoms and will be treated based on the culture and not his urinalysis. CT a/ p showed unremarkable bowel gas pattern. Gallbladder within normal limits. No visualized etiology to explain the patient's pain. The cecum and sigmoid colon have a normal configuration. Discussed with DR. Boggs and confirmed there is no appendicitis. Pt is well appearing and abdominal pain has resolved. No vomiting and tolerating PO. Return precautions given. Data Data Last Documented VS Vital Signs Date Time Temp Pulse Resp B/P (MAP) Pulse Ox O2 Delivery O2 Flow Rate FiO2 03/18/18 14:25 99.1 102 18 139/92 (108) 97 Orders Orders Complete Blood Count With Diff (03/18/18 14:51) Comprehensive Metabolic Panel (03/18/18 14:51) Lipase (03/18/18 14:51) Urinalysis - C+S If Indicated (03/18/18 14:51) Iv Access Insert/Monitor (03/18/18 14:51) NPO (03/18/18 14:51) Sodium Chloride 0.9% Flush (Ns Flush) (03/18/18 15:00) Urine Culture (03/18/18 15:15) Ct Abd/Pel W/O Iv Contrast (03/18/18 14:51) Ed Discharge Order (03/18/18 18:05) Labs Laboratory Tests Test 03/18/18 15:10 03/18/18 15:15 White Blood Count 7.6 TH/MM3 Red Blood Count 5.58 MIL/MM3 Hemoglobin 16.6 GM/DL Hematocrit 50.2 % Mean Corpuscular Volume 89.9 FL Mean Corpuscular Hemoglobin 29.8 PG Mean Corpuscular Hemoglobin Concent 33.2 % Red Cell Distribution Width 14.0 % Platelet Count 123 TH/MM3 Mean Platelet Volume 8.6 FL Neutrophils (%) (Auto) 86.7 % Lymphocytes (%) (Auto) 5.7 % Monocytes (%) (Auto) 5.4 % Eosinophils (%) (Auto) 2.0 % Basophils (%) (Auto) 0.2 % Neutrophils # (Auto) 6.6 TH/MM3 Lymphocytes # (Auto) 0.4 TH/MM3 Monocytes # (Auto) 0.4 TH/MM3 Eosinophils # (Auto) 0.2 TH/MM3 Basophils # (Auto) 0.0 TH/MM3 CBC Comment DIFF FINAL Differential Comment Blood Urea Nitrogen 33 MG/DL Creatinine 3.11 MG/DL Random Glucose 106 MG/DL Total Protein 8.0 GM/DL Albumin 3.8 GM/DL Calcium Level 9.1 MG/DL Alkaline Phosphatase 88 U/L Aspartate Amino Transf (AST/SGOT) 45 U/L Alanine Aminotransferase (ALT/SGPT) 24 U/L Total Bilirubin 0.5 MG/DL Sodium Level 140 MEQ/L Potassium Level 4.4 MEQ/L Chloride Level 109 MEQ/L Carbon Dioxide Level 19.4 MEQ/L Anion Gap 12 MEQ/L Estimat Glomerular Filtration Rate 25 ML/MIN Lipase 200 U/L Urine Color YELLOW Urine Turbidity CLEAR Urine pH 5.5 [address]rine [address] [place] 1.017 Urine Protein 100 mg/dL Urine Glucose (UA) NEG mg/dL Urine Ketones NEG mg/dL Urine Occult Blood SMALL Urine Nitrite NEG Urine Bilirubin NEG Urine Urobilinogen 2.0 MG/DL Urine Leukocyte Esterase MOD Urine RBC 1 /hpf Urine WBC 14 /hpf Urine Squamous Epithelial Cells 1 /hpf Urine Mucus FEW /lpf Microscopic Urinalysis Comment CULTURE INDICATED MDM Supervised Visit with OLGA L[facility]IA: No Diagnosis Primary Impression: Abdominal pain Qualified Codes: R10.31 - Right lower quadrant pain Patient Instructions: General Instructions Departure Forms: Tests/Procedures Additional Instruction: Please follow up with your primary care physician in 2-3 days. Return to the ED if symptoms worsen. Med/Other Pt SpecificInfo: Prescription(s) given Scripts Acetaminophen (Tylenol) 325 Mg Tab 650 MG PO Q6H Y for PAIN SCALE 1 TO 4, #20 TAB 0 Refills Prov: Donita Juarez DO 03/18/18 Disposition: 01 DISCHARGE HOME Condition: Stable Donita Juarez March 18, 2018 17:18
[2018-03-18] MEDS ORDERED: TYLE325T PO (18:07)
[2018-03-18 18:25] VITALS: BP 128/84
== END 2018-03-18 18:27 | disposition home or self-care (01) ==
LOC: NEPD 14:21
DX: R10.31 Right lower quadrant pain (principal)
CPT/HCPCS: 74176; 80053; 81001; 83690; 85025; 87086; 99284